=== PATIENT | female | born 1965 | race Caucasian/White ===

== ENCOUNTER 2019-07-26 07:06 | Day surgery (SDC) | payer OTHER ==
[~2019-07-26] VITALS: Ht 157.5 cm; Wt 92.8 kg
[~2019-07-26 07:06] MED LIST: LOSA25TA12 PO; RANI-287 PO; [UNRECOGNIZED DRUG - OTHER]
[2019-07-26 08:17] VITALS: Ht 157.5 cm; Wt 92.8 kg
[2019-07-26 08:19] VITALS: BP 119/59; PULSE 66; RESP 13
[2019-07-26] MEDS ORDERED: PROPOFOL 20 ML ONE (08:19)
[2019-07-26 09:09] VITALS: BP 126/66; PULSE 54; RESP 18
== END 2019-07-26 09:27 | disposition home or self-care (01) ==
LOC: GIL 07:06
PROVIDERS: ATTEND Internal Medicine Gastroenterology
DX: K29.50 Unspecified chronic gastritis without bleeding (principal); I10 Essential (primary) hypertension; E66.9 Obesity, unspecified; Z68.37 Body mass index [BMI] 37.0-37.9, adult
CPT/HCPCS: 43239; 84703; 88305; 88312; Z7610